=== PATIENT | male | born 1960 | race Caucasian/White ===

== ENCOUNTER → 2019-07-30 | Outpatient (CLI) | payer OTHER ==
--- NOTE | ~2019-07-30 | EKG ---
[place] [address] ELECTROCARDIOGRAM REPORT Name: ISRRAEL OROSCO Room: 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
--- NOTE | ~2019-07-30 | EKG ---
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
--- NOTE | 2019-07-30 13:32 | 2DMMODE ---
[place] [address] 2 D/M-MODE ECHOCARDIOGRAM Name: ISRRAEL OROSCO Room: [facility]#: [id number] Admission: 07/30/19 Attend Phys: Hunter Villalobos MD Discharge: Date of : 58 Date of Service: 07/30/19 1331 Report #: [id number] THIS REPORT FOR: cc: FAM - Family physician unknown FAM - Family physician unknown Jeremi Hernandez MD [facility] ~ THIS REPORT FOR: //name// APPROVED REPORT Study performed: 07/30/2019 12:30:31 EXAM: Comprehensive 2D, Doppler, and color-flow Echocardiogram Patient Location: Out-Patient BSA: 2.13 HR: 55 bpm BP: 122/78 mmHg Other Information Study Quality: Good Indications Arrhythmia Bradycardia 2D Dimensions IVSd: 10.33 (7-11mm) LVOT Diam: 20.19 (18-24mm) LVDd: 41.09 mm PWd: 10.20 (7-11mm) Ascending Ao: 34.12 (22-36mm) LVDs: 27.59 (25-40mm) Aortic Root: 31.41 mm Volumes Left Atrial Volume (Systole) LA ESV Index: 16.50 mL/m2 Aortic Valve AoV Peak Kam.: 1.31 m/s AO Peak Gr.: 6.84 mmHg LVOT Max P.15 mmHg AO Mean Gr.: 3.71 mmHg LVOT Mean P.96 mmHg LVOT Max V: 1.02 m/s AO V2 VTI: 26.24 cm LVOT Mean V: 0.64 m/s ULISES (VTI): 2.71 cm2 LVOT V1 VTI: 22.25 [place] [address] 2 D/M-MODE ECHOCARDIOGRAM Name: ISRRAEL OROSCO Room: [facility]#: [id number] Admission: 07/30/19 Attend Phys: Hunter Villalobos MD Discharge: Date of : 58 Date of Service: 07/30/19 1331 Report #: [id number] Mitral Valve E/A Ratio: 0.97 MV Decel. Time: 176.12 ms MV E Max Kam.: 0.75 m/s MV PHT: 51.07 ms MVA (PHT): 4.31 cm2 TDI E/Lateral E': 8.33 E/Medial E': 8.33 Medial E' Kam.: 0.09 m/s Lateral E' Kam.: 0.09 m/s Pulmonary Valve PV Peak Kam.: 0.79 m/s PV Peak Gr.: 2.51 mmHg Tricuspid Valve RAP Estimate: 5.00 mmHg TR Peak Gr.: 17.13 mmHg RVSP: 22.13 mmHg PA Pressure: 22.13 mmHg Left Ventricle The left ventricle is normal size. There is normal LV segmental wall motion. There is normal left ventricular wall thickness. Left ventricular systolic function is normal. The left ventricular ejection fraction is within the normal range. LVEF is 55-60%. The left ventricular diastolic function is normal. Right Ventricle The right ventricle is normal size. The right ventricular systolic function is normal. Atria The left atrium size is normal. The right atrium size is normal. Aortic Valve Aortic valve leaflets are mildly thickened. No aortic regurgitation is present. There is no aortic valvular stenosis. Mitral Valve The mitral valve is normal in structure. Mild mitral regurgitation. No evidence of mitral valve stenosis. Tricuspid Valve The tricuspid valve is normal in structure. There [place] [address] 2 D/M-MODE ECHOCARDIOGRAM Name: ISRRAEL OROSCO [id number] Admission: 07/30/19 Attend Phys: Hunter Villalobos MD Discharge: Date of : 58 Date of Service: 07/30/19 1331 Report #: [id number] valve regurgitation noted. Pulmonic Valve Pulmonic valve is not well visualized. There is no pulmonic valvular regurgitation. Great Vessels The aortic root is normal in size. IVC is normal in size and collapses >50% with inspiration. Pericardium There is no pericardial effusion. <Conclusion> LVEF is 55-60%. Aortic valve leaflets are mildly thickened. Mild mitral regurgitation. <ELECTRONICALLY SIGNED> By: Jeremi Hernandez MD, [facility] 07/30/19 133 30 Jeremi Hernandez MD, FACC /INF
== END ==
LOC: M.CRD 12:10
DX: I08.0 Rheumatic disorders of both mitral and aortic valves (principal); I49.9 Cardiac arrhythmia, unspecified